=== PATIENT | female | born 1945 | race Caucasian/White ===

== ENCOUNTER → 2021-01-12 | Outpatient (CLI) | payer MEDICARE, BC ==
[~2021-01-12] MED LIST: ALPRAZOLAM XR0.5 MG PO; CALCIUM CITRATE1 TA6 PO; GLUCOSAMINE & C1 CA2 PO; LEVAQUIN 5500 MG/TA1 PO; LEXAPRO20 MG PO; LORTAB 5/500 501 TAB PO; NORCO 325 MG-7.1 TAB PO; OMEGA 31000 MG PO; OMNICEF 300MG300 MG PO; PREMARIN0.625 MG PO; ROXICODONE 55 MG/TAB PO; VITAMIN C500 MG PO; VITAMINS & MIN480 M1 PO; WOMEN'S ONE DAI1 TAB PO; XANAX .25M0.25 MG/TA PO
== END ==
LOC: COL.RAD 06:51
DX: R10.11 Right upper quadrant pain (principal)
CPT/HCPCS: A9537; J2805